=== PATIENT | female | born 1950 | race Caucasian/White ===

== ENCOUNTER 2017-04-09 12:31 | Observation (INO) | payer OTHER ==
[~2017-04-09] VITALS: Ht 160 cm; Wt 63.0 kg
[~2017-04-09 12:31] MED LIST: ADULT LOW DOSE81 M1 PO; ADVAIR 500/501 DISK; ADVAIR 500/501 DISK IH; ALBUTEROL SULF8.5 GM IH; ALBUTEROL2.5 MG/3 M IH; ALLEGRA-D 241 TABLET PO; AMITIZA24 MICROGR PO; AMOXICILLIN500 M1 PO; ASPIR-LOW81 MG PO; ASPIRIN81 M1 PO; AZITHROMYCIN250 MG PO; BREO ELLIPTA I1 EACH IH; BUPROPION HCL100 MG PO; CARDIZEM CD,CA180 MG PO; CELEBREX200 MG PO; CIPRO500 MG PO; CLEOCIN300 MG PO; COLACE100 MG PO; CRANBERRY400 M1 PO; CYMBALTA60 MG PO; DAILY VALUE1 EACH PO; DAILY VITE1 EAC1 PO; DALIRESP500 MCG PO; DIOVAN160 MG PO; DULCOLAX5 MG PO; DUONEB 2.5-0.5 M3 ML IH; ELIXOPHYLL80 MG/15 M PO; ENDOCET 5-3251 EACH PO; EXCEDRIN EXTRA1 EACH PO; FEOSOL325 MG PO; FISH OIL 1,0001 EAC7 PO; FLEXERIL10 MG PO; GAS-X125 MG PO; GAS-X80 MG PO; GELATIN600 MG PO; HAIR, SKIN & N1 EAC1 PO; HAIR, SKIN & N1 EAC2 PO; IRON325 M1 PO; IRON325 MG PO; K-DUR20 MEQ PO; LATANOPROST2.5 ML BOTH EYES; LEVAQUIN500 MG PO; LIDODERM 5% P1 PATCH TD; LIPITOR10 MG PO; LITHIUM CARBON300 M1 PO; LITHIUM CARBON300 MG PO; Lithium Carbonate PO; Lumigan 0.01% Ophth BOTH EYES; MAG-AL LIQUID30 ML PO; MAG-AL PLUS SUS30 ML PO; MILK OF MAGN PO; MIRALAX17 GM PO; MOTRIN400 MG PO; MOTRIN600 MG PO; MULTIVITAMIN1 EAC2 PO; MYCOSTATIN 100,60 ML PO; NASACORT AQ16.5 GM BOTH NARES; NASONEX17 GM BOTH NARES; NEXIUM40 MG PO; NYSTATIN100000 UN1 PO; OMEGA-31000 M1 PO; OMEPRAZOLE40 M1 PO; ONE-A-DAY ESSE1 EAC1 PO; OXYCODONE HCL10 MG PO; OXYCODONE HCL5 MG PO; OXYCONTIN10 MG PO; PREDNISONE20 MG PO; PREDNISONE50 MG PO; PROAIR HFA8.5 GM IH; PROTONIX40 MG PO; Percocet 5/325,Endoc PO; REQUIP0.25 MG PO; REQUIP1 MG PO; RESTORIL15 MG PO; ROBITUSSIN100 MG/5 M PO; ROPINIROLE HC0.25 MG PO; SENNA-S TABLET1 EACH PO; SENNA8.6 MG PO; SEROQUEL12.5 MG PO; SINGULAIR10 MG PO; SPIRIVA1 INHALATI IH; THEO-DUR,THEOC300 MG PO; THEOPHYLLI80 MG/15 M PO; THEOPHYLLINE A100 MG PO; TRAVATAN Z5 ML BOTH EYES; VENTOLIN HFA18 GM IH; VERAPAMIL HCL240 MG PO; VITAMIN D2000 UNIT PO; VITAMIN D31000 UNI2 PO; VITAMIN D32000 UNI1 PO; VITAMIN E200 UNI2 PO; VITAMIN E400 UNIT PO; VYTORIN 10-201 EACH PO; WELLBUTRIN SR150 MG PO; WELLBUTRIN75 MG PO; XALATAN2.5 ML BOTH EYES; XOPENEX1.25 MG/3 IH; ZESTRIL10 MG PO; ZITHROMAX250 MG PO; ZYRTEC10 M2 PO; predniSONE PO
[2017-04-09 14:10] LABS: HEMATOCRIT 43.7 % (36.0-46.0); MCH 32.4 PG (29.0-34.0); MCV 101.2 FL (83-99); MEAN PLAT.VOLUME 9.9 uM^3 (9.5-12.4); PLATELET COUNT 256 K/uL (156-360); RBC DIS.WIDTH-CV 12.8 % (11.8-14.6); RED BLOOD COUNT 4.32 M/uL (3.80-5.20); WHITE BLOOD COUNT 7.9 K/uL (4.1-10.2)
[2017-04-09 14:18] LABS: CHLORIDE 104 mEq/L (99-109); POTASSIUM 4.4 mEq/L (3.7-5.4); SODIUM 141 mEq/L (136-147)
[2017-04-09 14:20] LABS: GLUCOSE 87 mg/dL (70-99)
[2017-04-09 14:21] LABS: ANION GAP 9 MEQ/L (2-14)
[2017-04-09 14:24] LABS: GFR ESTIMATE (CALCULATED) 48 mL/min/
[2017-04-09 14:25] LABS: UREA NITROGEN (BUN) 14 mg/dL (9-23)
[2017-04-09 14:53] LABS: TROP-I INTERPRETATION NEGATIVE; TROPONIN-I < 0.01 ng/mL (0.0-0.30)
[2017-04-09] MEDS ORDERED: VITAMIN B122500 MCG PO (19:39)
[2017-04-09] MEDS ORDERED: AMLODIPINE BESY10 MG PO (19:43)
[2017-04-09] MEDS ORDERED: AZITHROMYCIN250 MG1 PO (19:48)
[2017-04-09] MEDS ORDERED: OXYCODONE HCL5 MG PO (19:49)
[2017-04-09] MEDS ORDERED: IBUPROFEN600 MG PO (19:50)
[2017-04-09 21:52] VITALS: BP 190/98
[2017-04-09 23:32] LABS: D-DIMER ELISA < 0.15 mg/L FEU (< 0.57)
[2017-04-10] VITALS (8 sets, daily range): BP systolic 100–129; BP diastolic 49–68
[2017-04-10 01:17] LABS: TROP-I INTERPRETATION NEGATIVE; TROPONIN-I < 0.01 ng/mL (0.0-0.30)
[2017-04-10 06:47] LABS: TROP-I INTERPRETATION NEGATIVE; TROPONIN-I < 0.01 ng/mL (0.0-0.30)
[2017-04-10 07:16] LABS: EOSINOPHIL COUNT 0.4 K/uL (0-0.3); HEMATOCRIT 38.7 % (36.0-46.0); IMMATURE GRANULOCYTE (%) 0.4 % (0.0-0.7); INSTRUMENT ABS NEUTROPHIL CT 4.4 K/uL; LYMPHOCYTE COUNT 1.9 K/uL (1.0-2.8); MCH 33.1 PG (29.0-34.0); MCHC 32.3 G/DL (30.0-36.0); MCV 102.4 FL (83-99); MEAN PLAT.VOLUME 10.3 uM^3 (9.5-12.4); MONOCYTE COUNT 0.8 K/uL (0-0.8); NEUTROPHIL (%) 58.2 % (45-76); NEUTROPHIL COUNT 4.4 K/uL (1.8-6.4); PLATELET COUNT 231 K/uL (156-360); RBC DIS.WIDTH-CV 12.9 % (11.8-14.6); RBC DIS.WIDTH-SD 48.2 % (39-53); RED BLOOD COUNT 3.78 M/uL (3.80-5.20); WHITE BLOOD COUNT 7.5 K/uL (4.1-10.2)
[2017-04-10 07:57] LABS: ALKALINE PHOSPHATASE 76 IU/L (3-129); ANION GAP 5 MEQ/L (2-14); CHLORIDE 105 MEQ/L (99-109); GFR ESTIMATE (CALCULATED) 44 mL/min/; GLUCOSE 77 mg/dL (70-99); POTASSIUM 4.8 MEQ/L (3.7-5.4); SAMPLE HEMOLYSIS CHECK 0; SAMPLE ICTERIC CHECK 0; SAMPLE LIPEMIA CHECK 0; SODIUM 145 MEQ/L (136-147); TOTAL BILIRUBIN 0.2 MG/DL (0.0-1.0); UREA NITROGEN (BUN) 17 mg/dL (9-23)
[2017-04-10] MEDS ORDERED: LOPRESSOR25 MG PO (17:33)
[2017-04-10] MEDS ORDERED: TRAMADOL HCL50 MG PO (17:39)
== END 2017-04-10 19:34 | disposition home or self-care (01) ==
LOC: EME 12:31 → EDOF 20:28 → 5WEST 20:28 → EDOF 20:28 → 5WEST 21:28
PROVIDERS: Hospitalist
DX: R55 Syncope and collapse (principal); R07.81 Pleurodynia; J44.9 Chronic obstructive pulmonary disease, unspecified; Z99.81 Dependence on supplemental oxygen; I10 Essential (primary) hypertension; Z86.73 Personal history of transient ischemic attack (TIA), and cerebral infarction without residual deficits; Z87.891 Personal history of nicotine dependence; R91.1 Solitary pulmonary nodule; M43.8X4 Other specified deforming dorsopathies, thoracic region; S20.211A Contusion of right front wall of thorax, initial encounter; W19.XXXA Unspecified fall, initial encounter; J96.10 Chronic respiratory failure, unspecified whether with hypoxia or hypercapnia
CPT/HCPCS: 70450; 70551; 71020; 71260; 80048; 80076; 80178; 84484; 85025; 85027; 85379; 93005; 93306; 93880; 94640; 94760; 94799; 99202; 99281; 99285; G0378; J0360; J2060; J2270

== ENCOUNTER 2017-04-14 23:29 | Emergency (ER) | payer OTHER ==
[~2017-04-14] VITALS: Ht 160 cm; Wt 73.2 kg
[~2017-04-14 23:29] MED LIST changes: +AMLODIPINE BESY10 MG PO; +AZITHROMYCIN250 MG1 PO; +IBUPROFEN600 MG PO; +LOPRESSOR25 MG PO; +TRAMADOL HCL50 MG PO; +VITAMIN B122500 MCG PO
[2017-04-15 00:20] LABS: HEMATOCRIT 39.2 % (36.0-46.0); MCH 32.1 PG (29.0-34.0); MCHC 32.1 G/DL (30.0-36.0); MEAN PLAT.VOLUME 10.3 uM^3 (9.5-12.4); PLATELET COUNT 228 K/uL (156-360); RBC DIS.WIDTH-CV 12.5 % (11.8-14.6); RBC DIS.WIDTH-SD 46.5 % (39-53); RED BLOOD COUNT 3.92 M/uL (3.80-5.20); WHITE BLOOD COUNT 8.2 K/uL (4.1-10.2)
[2017-04-15 00:31] LABS: CHLORIDE 103 mEq/L (99-109); POTASSIUM 3.9 mEq/L (3.7-5.4); SODIUM 141 mEq/L (136-147)
[2017-04-15 00:34] LABS: GLUCOSE 85 mg/dL (70-99)
[2017-04-15 00:35] LABS: ANION GAP 8 MEQ/L (2-14)
[2017-04-15 00:36] LABS: TOTAL BILIRUBIN 0.2 mg/dL (0.0-1.0)
[2017-04-15 00:37] LABS: ALKALINE PHOSPHATASE 82 IU/L (3-129); GFR ESTIMATE (CALCULATED) 53 mL/min/
[2017-04-15 00:38] LABS: UREA NITROGEN (BUN) 16 mg/dL (9-23)
[2017-04-15 00:41] LABS: LIPASE 24 U/L (1.0-51.0)
[2017-04-15 00:47] LABS: TROP-I INTERPRETATION NEGATIVE; TROPONIN-I < 0.01 ng/mL (0.0-0.30)
[2017-04-15] MEDS ORDERED: LIDODERM 5% P1 PATCH TD (01:40)
[2017-04-15 02:12] VITALS: BP 131/79
== END 2017-04-15 02:14 | disposition home or self-care (01) ==
LOC: EME → EDBD 23:29 → EME 23:29
PROVIDERS: Emergency Medicine
DX: M54.6 Pain in thoracic spine (principal); S22.31XD Fracture of one rib, right side, subsequent encounter for fracture with routine healing; X58.XXXD Exposure to other specified factors, subsequent encounter; J44.9 Chronic obstructive pulmonary disease, unspecified; I10 Essential (primary) hypertension; J45.909 Unspecified asthma, uncomplicated; Z90.49 Acquired absence of other specified parts of digestive tract; Z87.891 Personal history of nicotine dependence
CPT/HCPCS: 71020; 80053; 82803; 83690; 83880; 84484; 85027; 93005; 99281; 99284; J1885; J2270; J2405

== ENCOUNTER → 2017-05-15 | Outpatient (CLI) | payer OTHER | END | disposition home or self-care (01) | DX: M16.11 Unilateral primary osteoarthritis, right hip (principal); R26.2 Difficulty in walking, not elsewhere classified; M25.551 Pain in right hip; M25.651 Stiffness of right hip, not elsewhere classified; M62.81 Muscle weakness (generalized) | CPT/HCPCS: 97110 GP; 97150 GO; 97161 GP; 97165 GO; G8978 GP; G8979 GP; G8980 GP; G8984 GO; G8985 GO; G8986 GO ==

== ENCOUNTER 2017-05-31 18:28 | Emergency (ER) | payer OTHER ==
[~2017-05-31] VITALS: Ht 160 cm; Wt 66.5 kg
[2017-05-31 20:09] LABS: HEMATOCRIT 41.6 % (36.0-46.0); MCH 32.4 PG (29.0-34.0); MCHC 32.2 G/DL (30.0-36.0); MCV 100.5 FL (83-99); PLATELET COUNT 260 K/uL (156-360); RBC DIS.WIDTH-SD 48.4 % (39-53); RED BLOOD COUNT 4.14 M/uL (3.80-5.20); WHITE BLOOD COUNT 7.1 K/uL (4.1-10.2)
[2017-05-31 20:27] LABS: CHLORIDE 108 mEq/L (99-109); POTASSIUM 4.2 mEq/L (3.7-5.4); SODIUM 144 mEq/L (136-147)
[2017-05-31 20:29] LABS: GLUCOSE 109 mg/dL (70-99)
[2017-05-31 20:30] LABS: ANION GAP 10 MEQ/L (2-14)
[2017-05-31 20:31] LABS: TOTAL BILIRUBIN 0.1 mg/dL (0.0-1.0)
[2017-05-31 20:33] LABS: ALKALINE PHOSPHATASE 93 IU/L (3-129); GFR ESTIMATE (CALCULATED) 48 mL/min/
[2017-05-31 20:34] LABS: UREA NITROGEN (BUN) 17 mg/dL (9-23)
[2017-05-31 20:46] LABS: ADD MIUA? YES; BILIRUBIN NEGATIVE; BLOOD NEGATIVE; COLOR YELLOW ((YELLOW)); GLUCOSE (STRIP) NEGATIVE; KETONES NEGATIVE; LEUKOCYTES NEGATIVE; NITRITE NEGATIVE; PROTEIN (STRIP) NEGATIVE; SPECIFIC GRAVITY 1.013 (1.000-1.030); UROBILINOGEN 0.2 MG/DL (0.2-1.0)
[2017-05-31 21:02] LABS: BACTERIA NONE SEEN /HPF; EPITHELIAL CELLS RARE /HPF; MUCUS TRACE /LPF; RED BLOOD CELLS 0-5 /HPF (0-5); UCUL ADDED? NO; WHITE BLOOD CELLS 0-5 /HPF (0-5)
[2017-05-31] MEDS ORDERED: SPIRIVA1 INHALATI IH (22:35)
[2017-05-31] MEDS ORDERED: LAMICTAL25 MG PO (22:36)
[2017-05-31] MEDS ORDERED: MACROBID100 MG PO (22:36)
[2017-05-31] MEDS ORDERED: CARDIZEM CD,CA180 MG PO (22:36)
[2017-05-31] MEDS ORDERED: ASCORBIC ACID500 M3 PO (22:37)
[2017-05-31] MEDS ORDERED: ULTRACET1 TABLET PO (23:47)
[2017-06-01 00:28] VITALS: BP 151/67
== END 2017-06-01 00:30 | disposition home or self-care (01) ==
LOC: EME 18:28 → EDOF 22:28 → EME 22:28
DX: N39.0 Urinary tract infection, site not specified (principal); B96.20 Unspecified Escherichia coli [E. coli] as the cause of diseases classified elsewhere; J44.9 Chronic obstructive pulmonary disease, unspecified; F32.9 Major depressive disorder, single episode, unspecified; I10 Essential (primary) hypertension; K21.9 Gastro-esophageal reflux disease without esophagitis; Z87.440 Personal history of urinary (tract) infections; Z87.891 Personal history of nicotine dependence; Z90.49 Acquired absence of other specified parts of digestive tract
CPT/HCPCS: 76770; 80053; 81003; 83605; 85027; 87040; 87086; 99281; 99285; J1335; J7050

== ENCOUNTER 2017-06-17 22:18 | Inpatient (IN) | payer OTHER ==
[~2017-06-17] VITALS: Ht 160 cm; Wt 67.7 kg
[~2017-06-17 22:18] MED LIST changes: +ASCORBIC ACID500 M3 PO; +LAMICTAL100 MG PO; +LITHIUM CARBON150 MG PO; +MACROBID100 MG PO; +OXYCODONE HCL5 M1 PO; +ULTRACET1 TABLET PO
[2017-06-18] MEDS ORDERED: MAGNESIUM100 MG PO (07:18)
[2017-06-18 07:21] VITALS: BP 146/63
[2017-06-18 07:22] LABS: ADD MIUA? YES; BILIRUBIN NEGATIVE; BLOOD NEGATIVE; COLOR YELLOW ((YELLOW)); GLUCOSE (STRIP) NEGATIVE; KETONES NEGATIVE; LEUKOCYTES NEGATIVE; NITRITE NEGATIVE; PROTEIN (STRIP) NEGATIVE; SPECIFIC GRAVITY 1.008 (1.000-1.030); UROBILINOGEN 0.2 MG/DL (0.2-1.0)
[2017-06-18 07:32] LABS: BACTERIA NONE SEEN /HPF; EPITHELIAL CELLS 2+ /HPF; MUCUS TRACE /LPF; RED BLOOD CELLS 0-5 /HPF (0-5); WHITE BLOOD CELLS 0-5 /HPF (0-5)
[2017-06-18 12:31] LABS: HEMATOCRIT 36.3 % (36.0-46.0); MCH 33.7 PG (29.0-34.0); MCHC 33.1 G/DL (30.0-36.0); MEAN PLAT.VOLUME 9.7 uM^3 (9.5-12.4); PLATELET COUNT 213 K/uL (156-360); RBC DIS.WIDTH-CV 13.7 % (11.8-14.6); RBC DIS.WIDTH-SD 51.6 % (39-53); RED BLOOD COUNT 3.56 M/uL (3.80-5.20); WHITE BLOOD COUNT 8.3 K/uL (4.1-10.2)
[2017-06-18 14:33] VITALS: BP 142/66
[2017-06-18 15:49] VITALS: BP 162/74
[2017-06-18 19:42] VITALS: BP 128/56
[2017-06-18 22:27] VITALS: BP 163/73
[2017-06-19] VITALS (7 sets, daily range): BP systolic 113–158; BP diastolic 34–68
[2017-06-19 06:40] LABS: MCV 100.3 FL (83-99)
[2017-06-19 07:01] LABS: ANION GAP 4 MEQ/L (2-14); CHLORIDE 106 MEQ/L (99-109); GFR ESTIMATE (CALCULATED) 53 mL/min/; GLUCOSE 107 mg/dL (70-99); POTASSIUM 3.9 MEQ/L (3.7-5.4); SAMPLE HEMOLYSIS CHECK 0; SAMPLE ICTERIC CHECK 0; SAMPLE LIPEMIA CHECK 0; SODIUM 142 MEQ/L (136-147); UREA NITROGEN (BUN) 14 mg/dL (9-23)
[2017-06-20 00:22] VITALS: BP 131/67
[2017-06-20 04:26] VITALS: BP 121/57
[2017-06-20 08:11] VITALS: BP 130/58
[2017-06-20 11:50] VITALS: BP 121/59
[2017-06-20 15:46] VITALS: BP 143/64
[2017-06-20 20:25] VITALS: BP 161/70
[2017-06-21 00:21] VITALS: BP 141/60
[2017-06-21 03:34] VITALS: BP 144/65
[2017-06-21 07:31] VITALS: BP 139/58
[2017-06-21] MEDS ORDERED: LOVENOX40 MG/0.4 SC (07:59)
[2017-06-21] MEDS ORDERED: ENDOCET 5-3251 EACH PO (07:59)
[2017-06-21 12:02] VITALS: BP 131/88
== END 2017-06-21 13:19 | DRG 470 ==
LOC: 2SOUTH → ENRESERV 22:18 → 2SOUTH 06-18 06:27 → 3WEST 06-18 14:16 → 2SOUTH 06-18 14:45 → 3WEST 06-21 13:19
PROVIDERS: Orthopaedic Surgery
PROC: 0SR90JA Replacement of Right Hip Joint with Synthetic Substitute, Uncemented, Open Approach (ICD-10-PCS; principal; 2017-06-18)
DX: M16.11 Unilateral primary osteoarthritis, right hip (principal); I10 Essential (primary) hypertension; J44.9 Chronic obstructive pulmonary disease, unspecified; G47.33 Obstructive sleep apnea (adult) (pediatric); K21.9 Gastro-esophageal reflux disease without esophagitis; G25.81 Restless legs syndrome; G89.29 Other chronic pain; M54.9 Dorsalgia, unspecified; Z99.81 Dependence on supplemental oxygen; Z86.73 Personal history of transient ischemic attack (TIA), and cerebral infarction without residual deficits; Z98.1 Arthrodesis status; Z87.891 Personal history of nicotine dependence
CPT/HCPCS: 71010; 73501; 80048; 81003; 85014; 85018; 85027; 94640; 94640 76; 94799; 99202; C1713; C1776; J0690; J1170; J1650; J2250; J2405; J2765; J3010; J7050; Q0175

== ENCOUNTER 2017-07-04 18:42 | Emergency (ER) | payer OTHER ==
[~2017-07-04] VITALS: Ht 160 cm; Wt 97.0 kg
[~2017-07-04 18:42] MED LIST changes: +LOVENOX40 MG/0.4 SC; +MAGNESIUM100 MG PO
[2017-07-04 19:41] LABS: BILIRUBIN NEGATIVE; BLOOD NEGATIVE; COLOR STRAW ((YELLOW)); GLUCOSE (STRIP) NEGATIVE; HEMATOCRIT 34.9 % (36.0-46.0); KETONES NEGATIVE; LEUKOCYTES NEGATIVE; MCH 32.3 PG (29.0-34.0); MCHC 32.4 G/DL (30.0-36.0); MCV 99.7 FL (83-99); MEAN PLAT.VOLUME 9.5 uM^3 (9.5-12.4); NITRITE NEGATIVE; PLATELET COUNT 589 K/uL (156-360); PROTEIN (STRIP) NEGATIVE; RBC DIS.WIDTH-CV 13.7 % (11.8-14.6); RBC DIS.WIDTH-SD 49.9 % (39-53); SPECIFIC GRAVITY 1.004 (1.000-1.030); UROBILINOGEN 0.2 MG/DL (0.2-1.0); WHITE BLOOD COUNT 9.9 K/uL (4.1-10.2)
[2017-07-04 19:53] LABS: ADD MIUA? NO; CHLORIDE 98 mEq/L (99-109); POTASSIUM 3.6 mEq/L (3.7-5.4); SODIUM 139 mEq/L (136-147); UCUL ADDED? NO
[2017-07-04 19:55] LABS: GLUCOSE 102 mg/dL (70-99)
[2017-07-04 19:56] LABS: ANION GAP 12 MEQ/L (2-14)
[2017-07-04 19:57] LABS: TOTAL BILIRUBIN 0.2 mg/dL (0.0-1.0)
[2017-07-04 19:59] LABS: ALKALINE PHOSPHATASE 99 IU/L (3-129); GFR ESTIMATE (CALCULATED) 53 mL/min/
[2017-07-04 20:00] LABS: UREA NITROGEN (BUN) 16 mg/dL (9-23)
[2017-07-04 20:01] LABS: DIRECT BILIRUBIN 0.1 mg/dL (0.0-0.3)
[2017-07-04 20:02] LABS: LIPASE 25 U/L (1.0-51.0)
[2017-07-04] MEDS ORDERED: ZOFRAN4 MG PO (20:53)
[2017-07-04] MEDS ORDERED: MIRALAX17 GM PO (20:53)
[2017-07-04 22:17] VITALS: BP 164/66
== END 2017-07-04 22:18 ==
LOC: EME 18:42
PROVIDERS: Emergency Medicine
DX: E86.0 Dehydration (principal); R11.2 Nausea with vomiting, unspecified; K59.00 Constipation, unspecified; K21.9 Gastro-esophageal reflux disease without esophagitis; J44.9 Chronic obstructive pulmonary disease, unspecified; E03.9 Hypothyroidism, unspecified; F31.9 Bipolar disorder, unspecified; Z87.891 Personal history of nicotine dependence; Z86.73 Personal history of transient ischemic attack (TIA), and cerebral infarction without residual deficits
CPT/HCPCS: 74176; 80048; 80076; 81003; 83690; 85027; 99281; 99284; J2405; J7030

== ENCOUNTER 2017-12-01 13:01 | Emergency (ER) | payer OTHER ==
[~2017-12-01] VITALS: Ht 160 cm; Wt 70.1 kg
[~2017-12-01 13:01] MED LIST changes: +ZOFRAN4 MG PO
[2017-12-01 13:45] LABS: BASOPHIL (%) 0.5 % (0-1); BASOPHIL COUNT 0.1 K/uL (0-0.1); EOSINOPHIL (%) 1.2 % (0-5); EOSINOPHIL COUNT 0.2 K/uL (0-0.3); HEMATOCRIT 43.7 % (36.0-46.0); HEMOGLOBIN 14.5 G/DL (11.9-15.5); IMMATURE GRANULOCYTE (%) 3.1 % (0.0-0.7); LYMPHOCYTE (%) 26.6 % (15-42); LYMPHOCYTE COUNT 3.3 K/uL (1.0-2.8); MCH 32.1 PG (29.0-34.0); MCHC 33.2 G/DL (30.0-36.0); MCV 96.7 FL (83-99); MONOCYTE (%) 10.3 % (3-12); MONOCYTE COUNT 1.3 K/uL (0-0.8); NEUTROPHIL (%) 58.3 % (45-76); NEUTROPHIL COUNT 7.2 K/uL (1.8-6.4); PLATELET COUNT 291 K/uL (156-360); RBC DIS.WIDTH-CV 13.6 % (11.8-14.6); RBC DIS.WIDTH-SD 48.6 % (39-53); RED BLOOD COUNT 4.52 M/uL (3.80-5.20); WHITE BLOOD COUNT 12.4 K/uL (4.1-10.2)
[2017-12-01 13:54] LABS: CHLORIDE 101 mEq/L (99-109); POTASSIUM 3.8 mEq/L (3.7-5.4); SODIUM 137 mEq/L (136-147)
[2017-12-01 13:56] LABS: GLUCOSE 115 mg/dL (70-99)
[2017-12-01 14:00] LABS: CREATININE 1.1 mg/dL (0.6-1.3); GFR ESTIMATE (CALCULATED) 53 mL/min/
[2017-12-01 14:01] LABS: UREA NITROGEN (BUN) 20 mg/dL (9-23)
[2017-12-01 14:04] LABS: PTT 27.3 SEC (25-37)
[2017-12-01 14:06] LABS: TROP-I INTERPRETATION NEGATIVE; TROPONIN-I < 0.01 ng/mL (0.0-0.30)
[2017-12-01 16:10] VITALS: BP 141/84
== END 2017-12-01 16:27 | disposition home or self-care (01) ==
LOC: EME 13:01
PROVIDERS: Emergency Medicine
DX: S22.069A Unspecified fracture of T7-T8 vertebra, initial encounter for closed fracture (principal); K21.9 Gastro-esophageal reflux disease without esophagitis; J44.9 Chronic obstructive pulmonary disease, unspecified; F41.9 Anxiety disorder, unspecified; F32.9 Major depressive disorder, single episode, unspecified; Z87.891 Personal history of nicotine dependence; Z90.49 Acquired absence of other specified parts of digestive tract; Z86.73 Personal history of transient ischemic attack (TIA), and cerebral infarction without residual deficits; Z88.8 Allergy status to other drugs, medicaments and biological substances
CPT/HCPCS: 71045; 71275; 80048; 84484; 85025; 85379; 85610; 85730; 93005; 94640; 99281; 99285; J2930; J3010

== ENCOUNTER 2018-04-16 15:36 | Emergency (ER) | payer OTHER ==
[~2018-04-16] VITALS: Ht 157.5 cm; Wt 69.8 kg
[2018-04-16] MEDS ORDERED: PERCOCET 5/31 TABLET PO (17:26)
[2018-04-16] MEDS ORDERED: COLACE100 MG PO (17:26)
[2018-04-16] MEDS ORDERED: ZOFRAN ODT4 MG PO (17:26)
[2018-04-16] MEDS ORDERED: DILAUDID2 MG PO (17:32)
[2018-04-16] MEDS ORDERED: SKELAXIN800 MG PO (17:32)
[2018-04-16 18:04] VITALS: BP 169/86
== END 2018-04-16 18:05 | disposition home or self-care (01) ==
LOC: EME 15:36
DX: M54.5 Low back pain (principal); G89.29 Other chronic pain; I10 Essential (primary) hypertension; J44.9 Chronic obstructive pulmonary disease, unspecified; Z86.73 Personal history of transient ischemic attack (TIA), and cerebral infarction without residual deficits; Z87.891 Personal history of nicotine dependence
CPT/HCPCS: 72100; 99281; 99284; J1885; J3010